=== PATIENT | female | born 1995 | race Caucasian/White ===

== ENCOUNTER 2019-05-30 18:42 | Emergency (ER) | payer OTHER ==
[2019-05-30 18:53] VITALS: BP 127/88; PULSE 87; TEMP 98.2; BMI 30.2
[2019-05-30] MEDS ORDERED: KETOROLAC TROMETHAMINE 30 MG/1 ML VIAL IM ONE (19:11)
--- NOTE | 2019-05-30 19:11 | PDOC ---
History of Present Illness - General Chief Complaint: Toothache Stated Complaint: TOOTHACHE Time Seen by Provider: 05/30/19 18:58 History Source: Patient Exam Limitations: No Limitations Past History - Past Medical History Allergies/Adverse Reactions: Allergies Allergy/AdvReac Type Severity Reaction Status Date / Time No Known Allergies Allergy Verified 05/30/19 18:53 Home Medications: Ambulatory Orders Vitamins ([facility]) - 1 tab PO DAILY 10/11/14 Asthma: No Cancer: No Cardiac Disorders: No COPD: No Diabetes: No HTN: No Seizures: No Thyroid Disease: No - Reproductive History Cervical CA: No Dysfunctional Uterine Bleeding: No Ectopic : No Endometrial CA: No Polycystic Ovaries: No Tubal Ligation: No - Immunization History Immunization Up to Date: Yes - Psycho Social/Smoking Cessation Hx Smoking Status: No Smoking History: Never smoked Have you smoked in the past 12 months: No Number of Cigarettes Smoked Daily: 0 Hx Alcohol Use: No Drug/Substance Use Hx: No Substance Use Type: None Hx Substance Use Treatment: No *Physical Exam - Vital Signs Last Vital Signs Temp Pulse Resp BP Pulse Ox 98.2 F 87 18 127/88 99 05/30/19 18:51 05/30/19 18:51 05/30/19 18:51 05/30/19 18:51 05/30/19 18:51 - Physical Exam General Appearance: No: Apparent Distress
[2019-05-30] MEDS ORDERED: KETOROLAC TROMETHAMINE 30 MG/1 ML VIAL ONE (19:15)
--- NOTE | 2019-05-30 19:18 | PDOC ---
History of Present Illness - General Chief Complaint: Toothache Stated Complaint: TOOTHACHE Time Seen by Provider: 05/30/19 18:58 History Source: Patient Exam Limitations: No Limitations Past History - Past Medical History Allergies/Adverse Reactions: Allergies Allergy/AdvReac Type Severity Reaction Status Date / Time No Known Allergies Allergy Verified 05/30/19 18:53 Home Medications: Ambulatory Orders Vitamins ([facility]) - 1 tab PO DAILY 10/11/14 Asthma: No Cancer: No Cardiac Disorders: No COPD: No Diabetes: No HTN: No Seizures: No Thyroid Disease: No - Reproductive History Cervical CA: No Dysfunctional Uterine Bleeding: No Ectopic : No Endometrial CA: No Polycystic Ovaries: No Tubal Ligation: No - Immunization History Immunization Up to Date: Yes - Psycho Social/Smoking Cessation Hx Smoking Status: No Smoking History: Never smoked Have you smoked in the past 12 months: No Number of Cigarettes Smoked Daily: 0 Hx Alcohol Use: No Drug/Substance Use Hx: No Substance Use Type: None Hx Substance Use Treatment: No *Physical Exam - Vital Signs Last Vital Signs Temp Pulse Resp BP Pulse Ox 98.2 F 87 18 127/88 99 05/30/19 18:51 05/30/19 18:51 05/30/19 18:51 05/30/19 18:51 05/30/19 18:51 - Physical Exam General Appearance: No: Apparent Distress HEENT: positive: Other (+L upper 3rd molar tooth is cracked, +plaque, +prior teeth fillings, no evidence of abscess; no facial swelling) Neurologic: positive: Alert Medical Decision Making - Medical Decision Making 23 y/o F with hx of lymphoma presents with L upper molar toothache x 2 weeks, worse today. Saw dentist 2 weeks ago, was placed on amoxicillin and was told she needed dental extraction, but patient has not yet scheduled an appointment for that yet. Denies fever, sob, cp. Cracked tooth, no evidence of abscess Plan: Toradol IM 05/30/19 19:15 Discharge - Discharge Information Problems reviewed: Yes Clinical Impression/Diagnosis: Toothache Condition: Stable Disposition: HOME - Admission No - Additional Discharge Information Prescription Drug Monitoring Program (I-STOP) results: I-STOP not reviewed - Follow up/Referral - Patient Discharge Instructions Patient Printed Discharge Instructions: DI for Dental Pain Additional Instructions: Thank you for choosing [facility]. It was a pleasure taking care of you. You may take Motrin 600 mg every 6 hours by mouth as needed for mild to moderate pain. Take Motrin with food. Follow-up with your dentist tomorrow Return to the Emergency Department if your symptoms worsen or persist or other concerning symptoms. - Post Discharge Activity
== END 2019-05-30 19:48 | disposition home or self-care (01) ==
LOC: JERFT 18:42 → JER 18:42
PROC: 3E0233Z Introduction of Anti-inflammatory into Muscle, Percutaneous Approach (ICD-10-PCS; principal; 2019-05-30)
DX: K03.81 Cracked tooth (principal); Z85.72 Personal history of non-Hodgkin lymphomas
CPT/HCPCS: 96372; 99284-25